=== PATIENT | female | born 1955 | race Caucasian/White ===

== ENCOUNTER → 2016-10-13 | Outpatient (CLI) | payer BC | LOC: RAD 10-12 01:26 | DX: Z12.31 Encounter for screening mammogram for malignant neoplasm of breast (principal) ==

== ENCOUNTER → 2017-11-19 | Outpatient (CLI) | payer BC | LOC: RAD 08:10 | DX: Z12.31 Encounter for screening mammogram for malignant neoplasm of breast (principal) ==

== ENCOUNTER → 2019-01-02 | Outpatient (CLI) | payer OTHER | LOC: BC 08:25 | DX: Z12.31 Encounter for screening mammogram for malignant neoplasm of breast (principal) ==

== ENCOUNTER → 2019-10-31 | Outpatient (CLI) | payer OTHER | LOC: RAD 11:16 | DX: N60.01 Solitary cyst of right breast (principal); N60.02 Solitary cyst of left breast; R92.2 Inconclusive mammogram ==

== ENCOUNTER → 2021-02-25 | Outpatient (CLI) | payer OTHER | LOC: BC 09:22 | PROVIDERS: ATTEND Obstetrics & Gynecology | DX: Z12.31 Encounter for screening mammogram for malignant neoplasm of breast (principal); N64.89 Other specified disorders of breast ==